=== PATIENT | male | born 1955 | race Caucasian/White ===

== ENCOUNTER 2020-02-10 09:14 | Emergency (ER) | payer MEDICARE, MEDICAID, SELFPAY ==
--- NOTE | 2020-02-10 09:34 | XR_ITS ---
EXAMINATION: XR CHEST CLINICAL INFORMATION: Shortness of breath COMPARISON: Previous chest x-ray most recent August 2019 TECHNIQUE: Frontal view of the chest was obtained. FINDINGS: The cardiac and mediastinal contours are stable. The lungs are well inflated. The lungs are clear. No pleural effusion or pneumothorax is seen. There are mild degenerative changes of the spine. XR/XR chest 1V IMPRESSION: No evidence for acute disease in the chest.
--- NOTE | 2020-02-10 09:34 | ECG_ITS ---
Test Reason : ASTHMA Blood Pressure : / mmHG Vent. Rate : 058 BPM Atrial Rate : 058 BPM P-R Int : 154 ms QRS Dur : 102 ms QT Int : 458 ms P-R-T Axes : 044 051 040 degrees QTc Int : 449 ms Sinus bradycardia RSR' or QR pattern in V1 suggests right ventricular conduction delay Nonspecific ST abnormality Abnormal ECG When compared with ECG of 12-JUN-2018 14:19, No significant change was found Referred By: Geoff Khan Electronically Signed By:HUE CHRISTENSEN MD
--- NOTE | 2020-02-10 09:40 | ED_ITS ---
HPI - SOB/Dyspnea General Chief Complaint: Asthma Stated Complaint: asthma Time Seen by Provider: 02/10/20 09:29 Source: patient Mode of arrival: ambulatory Limitations: no limitations History of Present Illness HPI Narrative: Patient presents to the ED for 7 days of shortness of breath. patient states wheezing due to asthma. patient states he ran out of albuterol inhaler and nebulizer Patient states no coughing, fever, chills, chest pain, coughing up blood, chest pain on inspiration, or any recent trauma. States also chronic lower bilateral extremities. Patient states shortness of breath on exertion. Patient denies any recent long travel, recent surgery, hormone use, history blood clots, or coughing up blood. Related Data Previous Rx's Medication Instructions Recorded albuterol sulfate 2 puff INHALATION Q6H PRN #18 g 02/10/20 albuterol sulfate 2.5 mg INHALATION Q6H PRN #30 ea 02/10/20 prednisone 40 mg PO DAILY #10 tab 02/10/20 Allergies Allergy/AdvReac Type Severity Reaction Status Date / Time No Known Allergies Allergy Unverified 12/31/19 15:10 [No Known Allergies*] Review of Systems Review of Systems: Yes all other systems are reviewed and are negative Constitutional: Constitutional: Reports as per HPI, Reports no additional constitutional complaints, Denies anorexia, Denies body ache(s), Denies chills, Denies daytime sleepiness, Denies difficulty sleeping, Denies fatigue, Denies fever(s), Denies frequent falls, Denies headache(s), Denies increased appetite and Denies lethargy Eyes: Eyes: Reports as per HPI, Reports no additional eye complaints, Denies blind spots, Denies blurry vision, Denies exophthalmos and Denies change in vision ENT: Reports system reviewed and no additional complaints, except as documented, Reports as per HPI, Reports Normal hearing present, Denies dysp hagia, Denies vertigo, Denies dizziness, Denies dry mouth, Denies otalgia, Denies facial pain, Denies headache(s), Denies hoarseness, Denies lip swelling, Denies epistaxis, Denies mouth lesions, Denies mouth pain, Denies nasal congestion and Denies nasal discharge Cardiovascular: Cardiovascular: Reports as per HPI, Reports no additional cardiovascular complaints, Denies chest pain, Denies chest pain at rest, Denies chest pain with activity, Reports dyspnea, Reports dyspnea on exertion, Denies orthopnea and Denies paroxysmal nocturnal dyspnea Respiratory: Respiratory: Denies no additional respiratory complaints, Denies change in phlegm color, Denies chest congestion, Denies cough, Denies hemoptysis, Denies excessive phlegm production, Denies pain on inspiration, Denies pain with cough, Reports dyspnea and Reports dyspnea on exertion Gastrointestinal: Gastrointestinal: Reports as per HPI, Reports no additional gastrointestinal complaints, Denies abdominal pain, Denies belching, Denies melena, Denies bloating, Denies hematochezia, Denies change in bowel habits, Denies tenesmus, Denies change in stool character, Denies coffee ground emesis, Denies constipation, Denies GI cramping, Denies dysphagia, Denies excessive flatus, Denies early satiety, Denies dyspepsia, Denies heartburn, Denies fecal incontinence, Denies diarrhea, Denies loose stools, Denies nausea and Denies vomiting Musculoskeletal: Musculoskeletal: Reports no additional musculoskeletal complaints and Reports as per HPI Neurologic: Reports Normal hearing present, Denies vertigo, Denies dizziness, Denies frequent falls and Denies headache(s) Endocrine: Endocrine: Denies fatigue PMFSH Past Medical History Medical History (Updated 02/10/20 @ 11:38 by YFN Villafuerte) Glaucoma HTN (hypertension) Surgical History (Updated 02/10/20 @ 09:44 by Lola Hartley) Hx of bilateral cataract extraction Social History Social History Smoking Status: Current every day smoker Use of substances other than those prescribed or required for medical reasons: Yes 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 Last Used Substance: Hours (ago) Any prior treatment program specific to substance use: No Advance Directives: Yes Advance Directives Information Provided: Yes Advance Directives on File: No Physical Exam Vital Signs: Vital Signs: Vital Signs Temp Pulse Resp BP Pulse Ox 02/10/20 11:57 76 18 161/74 H 95 02/10/20 09:41 98.1 F 62 18 142/52 H 96 Body Mass Index 23.8 Const: General: cooperative, healthy appearing, comfortable, no acute distress, well developed, alert and awake Orientation/consciousness: patient oriented x3 HENMT: Head: Yes normal to inspection and Yes No palpable skull fracture present Ears: hearing grossly normal bilaterally and external ears normal General nose exam: Normal external nose present Face and sinus: Yes normal facial exam Eyes: General: appearance normal, both eyes and all related structures Neck: Neck: Yes normal visual inspection, Yes full ROM, Yes no lymphadenopathy and Yes no meningeal signs Chest: Chest palpation & inspection: normal inspection of the chest, normal palpation of entire chest wall and no localized rib tenderness Resp: Effort & Inspection: normal respiratory effort, able to speak in complete sentences, normal respiratory pattern, no audible wheezes, no cough, no grunting, not labored, no nasal flaring, no paradoxical thoraco-abdom movements, no pursed lip breathing, no respiratory distress, no retractions, no stridor, not tachypneic and no tracheal deviation Auscultation: no crackles, no rales, no rhonchi, wheezes expiratory wheezes and lung sounds not diminished Percussion: percussion normal Cardio: Jugular venous distension: no JVD Heart sounds: S1 normal heart sound present and S2 normal heart sound present GI: Inspection: Yes normal to inspection Palpation (GI): Soft to palpation, not firm, nontender, no guarding and not rigid Percussion: Yes normal to percussion Auscultation: normal bowel sounds : General: No CVA tenderness and Yes no CVA tenderness Back/Spine/Pelvis: Back: no CVA tenderness, No CVA tenderness and No back tenderness Skin: General skin exam: no rashes or lesions noted Neuro: General: patient oriented x3, gait normal, no meningeal signs and CN's II-XI intact bilaterally Cranial nerves: Yes CN's II-XII intact bilaterally and Yes Normal hearing present Extrem: Other: Positive for bilateral lower extremity 1+pitting edema. Nega tive for any calf pain or erythema bilaterally. patient states this has occurred many times in the past. Physical exam does not inidicate DVT. Course Course Course Narrative: History physical exam indicating asthma exacerbation. Due to swelling of lower extremities BNP and troponin will be sent. History physical exam does not indicate PE. Patient does not have any risk factors such for PE. Patient denies any chest pain on inspiration, unilateral swelling extremity, coughing up blood, estrogen hormone use, recent trauma, or recent surgery. Reevaluation(s) Reevaluation #1: Patient states he feels better after receiving treatment. Patient's troponins negative after 7 days Period. BNP is negative. Chest x-ray negative for cardiomegaly, pneumonia, or effusions. Patient walked around the ER with O2 saturation pain between 95 and 97%. History and physical exam indicate Asthma exacerbation. Wheezing resolved. Patient is safe for discharge Time: 11:33 MDM - SOB/Dyspnea MDM Narrative Medical decision making narrative: Asthma exacerbation Differential Diagnosis Differential diagnosis: Likely asthma with exacerbation Lab Data Result diagrams: 02/10/20 09:54 02/10/20 09:54 Labs: Lab Results 02/10/20 02/10/20 02/10/20 Range/Units 09:54 09:54 09:54 WBC 4.5 L (4.8-10.8) X10*3/uL RBC 4.24 L (4.60-5.80) X10*6/uL Hgb 13.1 L (14.0-18.0) g/dl Hct 39.6 L (42-52) % MCV 93.4 (80-98) fL MCH 30.9 (27.0-33.0) pg MCHC 33.1 (31.0-36.0) g/dl RDW 12.1 (11.0-16.0) % Plt Count 222 (160-400) X10*3/uL MPV 9.3 L (9.4-12.4) fL Immature Gran % (Auto) 0.2 (0.0-0.4) % Neut % (Auto) 61.6 (45-73) % Lymph % (Auto) 25.6 (20-40) % [place] % (Auto) 8.1 (2-11) % Eos % (Auto) 3.4 (0-4) % Baso % (Auto) 1.1 (0-2) % Lymph # (Auto) 1.1 L (1.2-4.9) X10*3/uL [place] # (Auto) 0.4 (0.1-1.2) X10*3/uL Eos # (Auto) 0.2 (0.0-0.4) X10*3/uL Baso # (Auto) 0.1 (0.0-0.2) X10*3/uL Abs Immat Gran (auto) 0.01 (0.00-0.03) X10*3/uL Absolute Neuts (auto) 2.8 (2.0-8.3) X10*3/uL Absolute Nucleated RBC 0.000 (0.0-0.012) X10*3/uL Nucleated RBC % (auto) 0.0 (0.0-0.2) /100WBC PT 10.8 (10.8-13.0) SEC INR 0.9 (0.9-1.1) APTT 31.0 (24.1-38.0) SEC Sodium 136 (135-145) mmol/L Potassium 4.2 (3.3-5.1) mmol/l Chloride 101 (96-108) mmol/L Carbon Dioxide 29 (22-29) mmol/L Anion Gap 10 L (12-20) BUN 18 H (9-16) mg/dL Creatinine 0.98 (0.5-1.4) mg/dL Estim Creat Clear Calc 70.2 Estimated GFR > 60 Random Glucose 105 (60-115) mg/dL Calcium 8.4 (8.4-10.2) mg/dL Total Bilirubin 0.4 (0.0-1.0) mg/dL AST 33 (5-37) U/L ALT 29 (0-40) U/L Alkaline Phosphatase 46 (39-117) U/L Troponin I High Sens (<3.5-35.0) ng/L B-Natriuretic Peptide (<100) pg/mL Total Protein 6.4 L (6.5-8.0) g/dL Albumin 4.2 (3.5-5.0) g/dL 02/10/20 Range/Units 09:54 WBC (4.8-10.8) X10*3/uL RBC (4.60-5.80) X10*6/uL Hgb (14.0-18.0) g/dl Hct (42-52) % MCV (80-98) fL MCH (27.0-33.0) pg MCHC (31.0-36.0) g/dl RDW (11.0-16.0) % Plt Count (160-400) X10*3/uL MPV (9.4-12.4) fL Immature Gran % (Auto) (0.0-0.4) % Neut % (Auto) (45-73) % Lymph % (Auto) (20-40) % [place] % (Auto) (2-11) % Eos % (Auto) (0-4) % Baso % (Auto) (0-2) % Lymph # (Auto) (1.2-4.9) X10*3/uL [place] # (Auto) (0.1-1.2) X10*3/uL Eos # (Auto) (0.0-0.4) X10*3/uL Baso # (Auto) (0.0-0.2) X10*3/uL Abs Immat Gran (auto) (0.00-0.03) X10*3/uL Absolute Neuts (auto) (2.0-8.3) X10*3/uL Absolute Nucleated RBC (0.0-0.012) X10*3/uL Nucleated RBC % (auto) (0.0-0.2) /100WBC PT (10.8-13.0) SEC INR (0.9-1.1) APTT (24.1-38.0) SEC Sodium (135-145) mmol/L Potassium (3.3-5.1) mmol/l Chloride (96-108) mmol/L Carbon Dioxide (22-29) mmol/L Anion Gap (12-20) BUN (9-16) mg/dL Creatinine (0.5-1.4) mg/dL Estim Creat Clear Calc Estimated GFR Random Glucose (60-115) mg/dL Calcium (8.4-10.2) mg/dL Total Bilirubin (0.0-1.0) mg/dL AST (5-37) U/L ALT (0-40) U/L Alkaline Phosphatase (39-117) U/L Troponin I High Sens 4.8 (<3.5-35.0) ng/L B-Natriuretic Peptide 32 (<100) pg/mL Total Protein (6.5-8.0) g/dL Albumin (3.5-5.0) g/dL ECG Data Interpretation: Sinus bradycardia. Ventricular rate 58. UT interval 154. Negative STEMI. Discharge Plan Discharge Clinical Impression: Asthma with acute exacerbation Patient Disposition: Home, Self-Care Instructions: Asthma (ED) Additional Instructions: Return to the ED for any chest pain, shortness of breath, worsening swelling of lower extremities, calf pain, chest pain on inspiration, coughing up blood, fever, chills, weakness, night sweats, headache, dizziness, passing out, or any other concerning symptoms. Prescriptions: New prednisone 20 mg tablet 40 mg PO DAILY Qty: 10 RF: 0 albuterol sulfate 90 mcg/actuation HFA aerosol inhaler 2 puff inhalation Q6H PRN (Reason: asthma) Qty: 18 RF: 0 albuterol sulfate 2.5 mg/0.5 mL solution for nebulization 2.5 mg inhalation Q6H PRN (Reason: bronchospasm) Qty: 30 RF: 0 Referrals: Jason Hill MD [Primary Care Provider] - 2 days ( Asthma exacerbation) Interventions: ED Discharge Assessment Last Done: 02/10/20 11:47 Discharge Date/Time: 02/10/20 11:59 Print Language: Mongolian
[2020-02-10 09:41] VITALS: BP 142/52; PULSE 62; RESP 18; TEMP 36.7; O2SAT 96; BMI 23.8
[2020-02-10 10:02] LABS: MANUAL DIFF FLAG NO
[2020-02-10] MEDS: methylPREDNISolone Sod Succ/PF 125 MG/2 ML VIAL IVPUSH (10:02)
[2020-02-10] MEDS: Magnesium Sulfate/H2O 2 GM/50 ML PIGGYBACK IV (10:02)
[2020-02-10 10:04] LABS: Basophils Absolute Auto 0.1 X10*3/uL (0.0-0.2); Basophils Percent Auto 1.1 % (0-2); Eosinophils Absolute Auto 0.2 X10*3/uL (0.0-0.4); Eosinophils Percent Auto 3.4 % (0-4); Hematocrit 39.6 % (42-52); Hemoglobin 13.1 g/dl (14.0-18.0); Imm Gran Abs Auto 0.01 X10*3/uL (0.00-0.03); Imm Gran Pct Auto 0.2 % (0.0-0.4); Lymphocytes Absolute Auto 1.1 X10*3/uL (1.2-4.9); Lymphocytes Percent Auto 25.6 % (20-40); Mean Corpuscular HGB Conc 33.1 g/dl (31.0-36.0); Mean Corpuscular Hemoglobin 30.9 pg (27.0-33.0); Mean Corpuscular Volume 93.4 fL (80-98); Mean Platelet Volume 9.3 fL (9.4-12.4); Monocytes Absolute Auto 0.4 X10*3/uL (0.1-1.2); Monocytes Percent Auto 8.1 % (2-11); Neutrophils Absolute Auto 2.8 X10*3/uL (2.0-8.3); Neutrophils Percent Auto 61.6 % (45-73); Platelet Count 222 X10*3/uL (160-400); Red Blood Count 4.24 X10*6/uL (4.60-5.80); Red Cell Distribution Width 12.1 % (11.0-16.0); White Blood Count 4.5 X10*3/uL (4.8-10.8)
[2020-02-10] MEDS: Albuterol/Iprat 2.5/0.5MG 3 ML AMPUL.NEB INHALE (10:07)
[2020-02-10 10:10] LABS: INTERNATIONAL NORM RATIO 0.9 (0.9-1.1); Prothrombin Time 10.8 SEC (10.8-13.0)
[2020-02-10 10:36] LABS: Alanine Aminotransferase 29 U/L (0-40); Albumin Level 4.2 g/dL (3.5-5.0); Alkaline Phosphatase 46 U/L (39-117); Anion Gap 10 (12-20); Aspartate Amino Transferase 33 U/L (5-37); Bilirubin Total 0.4 mg/dL (0.0-1.0); Blood Urea Nitrogen 18 mg/dL (9-16); Calcium 8.4 mg/dL (8.4-10.2); Carbon Dioxide 29 mmol/L (22-29); Chloride 101 mmol/L (96-108); Creatinine Clr Calc Pharmacy 70.2; Estimated Glomerular Filt Rate > 60; Glucose Random 105 mg/dL (60-115); Potassium 4.2 mmol/l (3.3-5.1); Sodium 136 mmol/L (135-145); Total Protein 6.4 g/dL (6.5-8.0)
[2020-02-10 10:37] LABS: B Type Natriuretic Peptide 32 pg/mL (<100); Troponin-I High Sensitivity 4.8 ng/L (<3.5-35.0)
--- NOTE | 2020-02-10 11:05 | PC.NURSE ---
pt reports feeling better after the medication and breathing treatment, ls also improved but still some expertory wheezing
[2020-02-10 11:57] VITALS: BP 161/74; PULSE 76; RESP 18; O2SAT 95
== END 2020-02-10 11:59 | disposition home or self-care (01) ==
PROVIDERS: Physician Assistant; Emergency Provider Emergency Medicine; PCP Internal Medicine
DX: J45.909 Unspecified asthma, uncomplicated (principal); F17.200 Nicotine dependence, unspecified, uncomplicated; Z71.6 Tobacco abuse counseling; Z79.899 Other long term (current) drug therapy
CPT/HCPCS: 36415; 71045; 80053; 83880; 84484; 85025; 85610; 85730; 93005; 96365; 96366; 96375; 99284; J2930; J3475

== ENCOUNTER 2020-02-24 17:13 | Emergency (ER) | payer MEDICARE, MEDICAID, SELFPAY ==
[2020-02-24 17:34] VITALS: BP 140/68; PULSE 89; RESP 18; TEMP 35.7; O2SAT 92; BMI 23.8
--- NOTE | 2020-02-24 21:05 | XR_ITS ---
EXAMINATION: XR CHEST CLINICAL INFORMATION: Shortness of breath COMPARISON: 02/24/2020 TECHNIQUE: Frontal view of the chest was obtained. FINDINGS: No significant abnormality is noted involving the heart, lungs, mediastinum, bony thorax or soft tissues. There is an old fracture of the ninth posterior right rib. XR/XR chest 1V IMPRESSION: No acute intrathoracic disease.
--- NOTE | 2020-02-24 21:07 | ED_ITS ---
HPI - Asthma General Chief Complaint: Asthma Stated Complaint: asthma Time Seen by Provider: 02/24/20 21:05 History of Present Illness HPI Narrative: patient is a 64-year-old male presents today with having wheezing generalized malaise coughing congestion upper respiratory symptoms. Patient from home. There has been no change in patient's smell or taste. No travel. No sick contacts at home. Positive history of asthma in the past. Patient has never been intubated. Admitted to the hospital once. Patient denies smoking history. No alcohol. Related Data Previous Rx's Medication Instructions Recorded albuterol sulfate 2 puff INHALATION Q6H PRN #18 g 02/10/20 albuterol sulfate 2.5 mg INHALATION Q6H PRN #30 ea 02/10/20 prednisone 40 mg PO DAILY #10 tab 02/10/20 prednisone 40 mg PO DAILY 5 Days #10 tab 02/25/20 Allergies Allergy/AdvReac Type Severity Reaction Status Date / Time No Known Allergies Allergy Unverified 12/31/19 15:10 [No Known Allergies*] Review of Systems Review of Systems: Constitutional: No Weight loss, No Fever, No Chills, No Night Sweats, No Fatigue, No Malaise ENT/Mouth: No Hearing loss, No Ear Pain, No Nasal Congestion, No Sinus Pain, No Hoarseness, No sore throat, No Rhinorrhea, No Swallowing Difficulty Eyes: No Eye Pain, No Swelling, No Redness, No Foreign Body, No Discharge, No Vision Changes Cardiovascular: No Chest Pain, No SOB, No Dyspnea on Exertion, No Orthopnea, No Edema, No Palpitations Respiratory: Positive cough, shortness of breath Gastrointestinal: No Nausea, No Vomiting, No Diarrhea, No Constipation, No abdominal Pain, No Hematochezia, No Melena Genitourinary: no irregular bleeding, No Dysuria, No Urinary Frequency, No Hematuria, No Urinary Incontinence, No Urgency, No Flank Pain, No Urinary Flow Changes, No Hesitancy Musculoskeletal: No joint pain, No Myalgias, No Joint Swelling Skin: No Skin Lesions, No rash Neuro: No Weakness, No Numbness, No Paresthesias, No Loss of Consciousness, No Dizziness, No Headache Psych: No Anxiety/Panic, No Depression, No SI/HI/AH/VH, No Social Issues, Heme/Lymph: No Bruising, No Bleeding,No Lymphadenopathy Endocrine: No Polyuria, No Polydipsia, No Temperature Intolerance [facility] Past Medical History Attestation statement: The following information was validated with the patient. Medical History Glaucoma HTN (hypertension) Surgical History Hx of bilateral cataract extraction Social History Social History Smoking Status: Current every day smoker Substance Use Type: Heroin Advance Directives: No Advance Directives Information Provided: No Physical Exam Vital Signs: Vital Signs: Last Vital Signs Temp 96.3 F L 02/24/20 17:34 Pulse 67 02/24/20 22:38 Resp 22 H 02/24/20 22:38 BP 144/86 H 02/24/20 22:38 Pulse Ox 95 02/24/20 22:38 Body Mass Index 23.8 Appearance: Alert. Oriented X3. No acute distress. Eyes: Pupils equal, round and reactive to light. ENT: Pharynx normal. Neck: Normal inspection. Neck supple. No lymph nodes noted. No crepitus CVS: Normal heart rate and rhythm. Pulses normal. Normal S1 and S2 Respiratory: increased work of breathing, wheezing bilaterally Abdomen: Soft and nontender. No rigidity. No distention. good BS x4 Skin: Skin warm and dry. Normal skin color. Normal skin turgor. Extremities: No lower extremity edema. Neurovascular intact to all extremities. No Lacerations. No Rash Neuro: Oriented X 3. No motor deficit. No sensory deficit. Moving all extermities. No slurred speech MDM - Asthma MDM Narrative Medical decision making narrative: Patient monitor in the emergency department. Rotavirus test was negative chest x-ray showed no focal infiltrate given neb treatments. Patient given steroid after an hour long treatments symptoms dramatically improved. Will discharge patient home. Close follow-up on an outpatient basis. In stable condition. Lab Data Result diagrams: 02/24/20 22:21 02/24/20 22:21 Labs: Lab Results 02/24/20 02/24/20 02/24/20 Range/Units 22:21 22:21 22:21 WBC 7.0 (4.8-10.8) X10*3/uL RBC 4.11 L (4.60-5.80) X10*6/uL Hgb 12.6 L (14.0-18.0) g/dl Hct 37.8 L (42-52) % MCV 92.0 (80-98) fL MCH 30.7 (27.0-33.0) pg MCHC 33.3 (31.0-36.0) g/dl RDW 12.3 (11.0-16.0) % Plt Count 228 (160-400) X10*3/uL MPV 9.2 L (9.4-12.4) fL Immature Gran % (Auto) 0.3 (0.0-0.4) % Neut % (Auto) 57.3 (45-73) % Lymph % (Auto) 27.0 (20-40) % [place] % (Auto) 6.2 (2-11) % Eos % (Auto) 8.6 H (0-4) % Baso % (Auto) 0.6 (0-2) % Lymph # (Auto) 1.9 (1.2-4.9) X10*3/uL [place] # (Auto) 0.4 (0.1-1.2) X10*3/uL Eos # (Auto) 0.6 H (0.0-0.4) X10*3/uL Baso # (Auto) 0.0 (0.0-0.2) X10*3/uL Abs Immat Gran (auto) 0.02 (0.00-0.03) X10*3/uL Absolute Neuts (auto) 4.0 (2.0-8.3) X10*3/uL Absolute Nucleated RBC 0.000 (0.0-0.012) X10*3/uL Nucleated RBC % (auto) 0.0 (0.0-0.2) /100WBC Sodium 140 (135-145) mmol/L Potassium 3.8 (3.3-5.1) mmol/l Chloride 102 (96-108) mmol/L Carbon Dioxide 26 (22-29) mmol/L Anion Gap 16 (12-20) BUN 26 H (9-16) mg/dL Creatinine 0.96 (0.5-1.4) mg/dL Estim Creat Clear Calc 71.7 Estimated GFR > 60 Random Glucose 108 (60-115) mg/dL Calcium 8.5 (8.4-10.2) mg/dL Coronavirus (PCR) NEGATIVE (Negative) Influenza Type A (PCR) NEGATIVE (Negative) Influenza Type B (PCR) NEGATIVE (Negative) RSV RNA Qual (PCR) NEGATIVE (Negative) Critical Care Time Critical Care Time Total Critical Care Time: 30 Attestation: I have personally provided 40 minutes of critical care time exclusive of time spent on separately billable procedures. Time includes review of lab data, radiology results, discussion with consultants, and monitoring for potential decompensation. Interventions were performed as documented above Discharge Plan Discharge Clinical Impression: Asthma with acute exacerbation Patient Disposition: Home, Self-Care Instructions: Asthma (ED) Additional Instructions: UA given inhaler from the emergency department. Close follow-up on an outpatient basis. Worsening condition return to the emergency department. Prescriptions: New prednisone 20 mg tablet 40 mg PO DAILY 5 Days Qty: 10 RF: 0 No Action prednisone 20 mg tablet 40 mg PO DAILY Qty: 10 RF: 0 albuterol sulfate 90 mcg/actuation HFA aerosol inhaler 2 puff inhalation Q6H PRN (Reason: asthma) Qty: 18 RF: 0 albuterol sulfate 2.5 mg/0.5 mL solution for nebulization 2.5 mg inhalation Q6H PRN (Reason: bronchospasm) Qty: 30 RF: 0 Referrals: Jason Hill MD [Primary Care Provider] - 2 days
[2020-02-24] MEDS: Albuterol Sulfate (0.083%) 2.5 MG/3 ML VIAL.NEB 10 MG INHALE (21:11)
[2020-02-24] MEDS: Albuterol Sulfate 90 MCG 8 GM INHALER 2 PUFF INHALE (21:49)
[2020-02-24 22:33] LABS: Basophils Percent Auto 0.6 % (0-2); Eosinophils Absolute Auto 0.6 X10*3/uL (0.0-0.4); Eosinophils Percent Auto 8.6 % (0-4); Hematocrit 37.8 % (42-52); Hemoglobin 12.6 g/dl (14.0-18.0); Imm Gran Abs Auto 0.02 X10*3/uL (0.00-0.03); Imm Gran Pct Auto 0.3 % (0.0-0.4); Lymphocytes Absolute Auto 1.9 X10*3/uL (1.2-4.9); Mean Corpuscular HGB Conc 33.3 g/dl (31.0-36.0); Mean Corpuscular Hemoglobin 30.7 pg (27.0-33.0); Mean Platelet Volume 9.2 fL (9.4-12.4); Monocytes Absolute Auto 0.4 X10*3/uL (0.1-1.2); Monocytes Percent Auto 6.2 % (2-11); Neutrophils Percent Auto 57.3 % (45-73); Platelet Count 228 X10*3/uL (160-400); Red Blood Count 4.11 X10*6/uL (4.60-5.80); Red Cell Distribution Width 12.3 % (11.0-16.0)
[2020-02-24 22:34] LABS: MANUAL DIFF FLAG NO
[2020-02-24 22:38] VITALS: BP 144/86; PULSE 67; RESP 22; O2SAT 95
--- NOTE | 2020-02-24 22:39 | PC.NURSE ---
pt labs sent, covid/rsv swab complete.
[2020-02-24 23:04] LABS: Anion Gap 16 (12-20); Blood Urea Nitrogen 26 mg/dL (9-16); Calcium 8.5 mg/dL (8.4-10.2); Carbon Dioxide 26 mmol/L (22-29); Chloride 102 mmol/L (96-108); Creatinine Clr Calc Pharmacy 71.7; Estimated Glomerular Filt Rate > 60; Glucose Random 108 mg/dL (60-115); Potassium 3.8 mmol/l (3.3-5.1); Sodium 140 mmol/L (135-145)
[2020-02-24 23:15] LABS: Influenza A PCR NEGATIVE (Negative); Influenza B PCR NEGATIVE (Negative); Resp Syncy Virus RNA Qual PCR NEGATIVE (Negative); SARS COV2 PCR INHOUSE NEGATIVE (Negative)
[2020-02-25] MEDS: methylPREDNISolone Sod Succ/PF 125 MG/2 ML VIAL IVPUSH (00:36)
== END 2020-02-25 02:38 | disposition home or self-care (01) ==
PROVIDERS: Emergency Provider Emergency Medicine Emergency Medical Services; PCP Internal Medicine
DX: J45.901 Unspecified asthma with (acute) exacerbation (principal); F11.90 Opioid use, unspecified, uncomplicated; F17.200 Nicotine dependence, unspecified, uncomplicated; Z79.899 Other long term (current) drug therapy; Z71.6 Tobacco abuse counseling; Z20.828 Contact with and (suspected) exposure to other viral communicable diseases
CPT/HCPCS: 0241U; 36415; 71045; 80048; 85025; 94640; 96365; 96375; 99283; 99291; J2930

== ENCOUNTER 2020-08-13 12:20 | Emergency (ER) | payer MEDICARE, MEDICAID, SELFPAY ==
--- NOTE | ~2020-08-13 | XR_ITS ---
EXAMINATION: XR CHEST CLINICAL INFORMATION: Shortness of breath COMPARISON: 02/24/2020 TECHNIQUE: Frontal view of the chest was obtained. FINDINGS: No focal consolidation, pleural effusion or pneumothorax. The cardiac mediastinal silhouette is unchanged. No acute osseous abnormality. Old right posterior ninth rib fracture. XR/XR chest 1V IMPRESSION: No acute pulmonary process.
[2020-08-13 12:26] VITALS: BP 176/70; PULSE 77; RESP 22; TEMP 36; O2SAT 100; BMI 25.0
[2020-08-13] MEDS: Albuterol Sulfate 90 MCG 8 GM INHALER 2 PUFF INHALE (13:37)
[2020-08-13] MEDS: predniSONE 20 MG TABLET 40 MG PO (13:37)
--- NOTE | 2020-08-13 13:40 | ED_ITS ---
HPI - SOB/Dyspnea General Chief Complaint: Dyspnea Stated Complaint: sob Time Seen by Provider: 08/13/20 13:30 Source: patient Mode of arrival: ambulatory Limitations: no limitations History of Present Illness HPI Narrative: 64 years old male with history of asthma, currently smoker, presented with acute asthma exacerbation. Patient feel wheezing and tightness in his chest, patient ran out of his albuterol pump, coughing with occasional expectoration of clear sputum. No fever, no chills. Related Data Previous Rx's Medication Instructions Recorded albuterol sulfate 2 puff INHALATION Q6H PRN #18 g 02/10/20 albuterol sulfate 2.5 mg INHALATION Q6H PRN #30 ea 02/10/20 prednisone 40 mg PO DAILY #10 tab 02/10/20 prednisone 40 mg PO DAILY 5 Days #10 tab 02/25/20 albuterol sulfate [ProAir HFA] 1 inh INHALATION QID PRN #8.5 g 08/13/20 prednisone 20 mg PO BID #10 tab 08/13/20 Allergies Allergy/AdvReac Type Severity Reaction Status Date / Time No Known Allergies Allergy Unverified 12/31/19 15:10 [No Known Allergies*] Review of Systems Review of Systems: All other systems are reviewed and are negative Constitutional: Reports as per HPI and Reports no additional constitutional complaints Eyes: Reports as per HPI and Reports no additional eye complaints Reports system reviewed and no additional complaints, except as documented Cardiovascular: Reports as per HPI and Reports no additional cardiovascular complaints Respiratory: Reports as per HPI and Reports no additional respiratory complaints Gastrointestinal: Reports as per HPI and Reports no additional gastrointestinal complaints Genitourinary: Reports no additional female genitourinary complaints Musculoskeletal: Reports no additional musculoskeletal complaints Skin/Breast: Reports system reviewed and no additional complaints, except as doc u Psychiatric: Reports no additional psychiatric complaints Endocrine: Reports no additional endocrine complaints Hematologic/Lymphatic: Reports no additional hematologic/lymphatic complaints Allergic/Immunologic: Reports no additional allergic/immunologic complaints Reports system reviewed and no additional complaints, except as documented and Reports Abnormal speech present [facility] Past Medical History Medical History Asthma Asthma Glaucoma HTN (hypertension) Surgical History Hx of bilateral cataract extraction Social History Social History Smoking Status: Current every day smoker Substance Use Type: Heroin Advance Directives: No Advance Directives Information Provided: Yes Physical Exam Vital Signs: Vital Signs: Last Vital Signs Temp 96.8 F 08/13/20 12:26 Pulse 77 08/13/20 12:26 Resp 22 H 08/13/20 12:26 BP 176/70 H 08/13/20 12:26 Pulse Ox 100 08/13/20 12:26 Body Mass Index 25.0 Vital signs have been reviewed as appeared to be correct. Blood pressure elevated. Heart rate normal. Respiration rate elevated. Temperature normal. Oxygen saturation normal. Appearance: Alert. Oriented X3. No acute distress. Head: Normal external exam. Normocephalic. Atraumatic. No Buck signs noted. No raccoon eyes noted Eyes: PERRLA. EOMI. Conjunctiva and sclera normal. Eyelids normal. ENT: TM's Normal. Pharynx normal. Uvula midline. Moist mucous membranes. No trismus noted. No drooling noted. No muffled voice noted. Neck: Normal inspection. Neck supple. FROM. No adenopathy. Thyroid Normal. No meningeal signs. No neck mass noted. CVS: Normal heart rate and rhythm. Heart sound normal. No murmurs noted. Pulses normal throughout. Respiratory: No respiratory distress. Painless inspiration. Breath sounds normal. Diffuse expiratory wheezing, prolonged expiration. no rhonchi noted. Chest nontender. No accessory muscle usage noted or decreased air movement noted. Abdomen: Soft and nontender. Bowel sounds normal in all 4 quadrants. No distention noted. No organomegaly noted. No visible injury noted. Back: No CVA tenderness. Full range of motion noted. Skin: Skin warm and dry. Normal skin color. Normal skin turgor. No rashes/lesions/lacerations noted. Extremities: No lower extremity edema. Extremities exhibit normal range of motion. Extremities nontender. Neuro: Oriented X 3. No motor deficit. No sensory deficit. Reflexes normal. Course Course Course Narrative: Assessment and plan. 64-year-old male with history of asthma came in with wheezing and chest tightness after he ran out of his albuterol, physical exam and history is consistent with acute asthma exacerbation. Start the patient on prednisone , refill his albuterol bump. [facility] - SOB/Dyspnea Lab Data Attestation: I reviewed the patient's lab results. Labs: Lab Results 08/13/20 Range/Units 13:36 COVID-19 ([facility]) Negative (Negative) COVID-19 Clin Com See Note Imaging Data Chest x-ray: Radiologist's impression: No acute pathology. Discharge Plan Discharge Clinical Impression: Asthma with exacerbation Patient Disposition: Home, Self-Care Instructions: Asthma (ED) Prescriptions: New albuterol sulfate [ProAir HFA] 90 mcg/actuation HFA aerosol inhaler 1 inh inhalation QID PRN (Reason: shortness of breath or wheezing) Qty: 8.5 RF: 0 prednisone 20 mg tablet 20 mg PO BID Qty: 10 RF: 0 No Action prednisone 20 mg tablet 40 mg PO DAILY Qty: 10 RF: 0 albuterol sulfate 90 mcg/actuation HFA aerosol inhaler 2 puff inhalation Q6H PRN (Reason: asthma) Qty: 18 RF: 0 albuterol sulfate 2.5 mg/0.5 mL solution for nebulization 2.5 mg inhalation Q6H PRN (Reason: bronchospasm) Qty: 30 RF: 0 prednisone 20 mg tablet 40 mg PO DAILY 5 Days Qty: 10 RF: 0 Referrals: Damon Parkinson DO [Primary Care Provider] - 2 days
[2020-08-13 13:59] LABS: COVID-19 Test Negative (Negative)
== END 2020-08-13 14:50 | disposition home or self-care (01) ==
PROVIDERS: Emergency Provider Emergency Medicine; PCP Internal Medicine
DX: J45.901 Unspecified asthma with (acute) exacerbation (principal); R06.00 Dyspnea, unspecified; F11.90 Opioid use, unspecified, uncomplicated; F17.210 Nicotine dependence, cigarettes, uncomplicated; Z79.899 Other long term (current) drug therapy; Z71.6 Tobacco abuse counseling; Z20.822 Contact with and (suspected) exposure to COVID-19
CPT/HCPCS: 36415; 71045; 87635; 99284

== ENCOUNTER 2020-10-16 11:52 | Emergency (ER) | payer MEDICARE, MEDICAID, SELFPAY ==
--- NOTE | ~2020-10-16 | XR_ITS ---
EXAMINATION: XR CHEST CLINICAL INFORMATION: Shortness of breath COMPARISON: Chest x-ray on 08/13/2020 TECHNIQUE: 2 views of the chest were obtained. FINDINGS: The cardiac mediastinal silhouette is stable. No areas of consolidation. No pleural effusions. Old right ninth rib fracture. XR/XR chest 2V IMPRESSION: No acute disease.
--- NOTE | ~2020-10-16 | US_ITS ---
EXAMINATION: US VENOUS ULTRASOUND WITH DOPPLER LOWER EXTREMITY, BILATERAL CLINICAL INFORMATION: Swelling, pain, rule out DVT COMPARISON: None TECHNIQUE: Ultrasound of the deep veins is performed from the hip to the calf with compression sonography and color and pulse Doppler assessment. Spectral analysis with color-flow imaging is performed. FINDINGS: RIGHT: There is normal venous compression and respiratory variation and augmented flow. The visualized common femoral vein, superficial femoral vein, profunda femoral vein, popliteal vein, and the trifurcation region shows no evidence of deep venous thrombosis. There is no significant popliteal fossa cyst. LEFT: There is normal venous compression and respiratory variation and augmented flow. The visualized common femoral vein, superficial femoral vein, profunda femoral vein, popliteal vein, and the trifurcation region shows no evidence of deep venous thrombosis. There is a 3.7 x 0.8 x 0.7 cm fluid collection in left popliteal fossa. If the patient's symptoms persist, followup ultrasound in 5 days 7 days might be of value to exclude proximal propagation from a non-visualized calf vein. US/US venous duplex LE BI IMPRESSION: No DVT demonstrated in the bilateral lower extremity. Left Christianson's cyst.
[2020-10-16 11:57] VITALS: BP 127/49; PULSE 68; RESP 18; TEMP 36.9; O2SAT 97; BMI 23.8
--- NOTE | 2020-10-16 12:09 | ECG_ITS ---
Test Reason : UPPER RESPIRATORY Blood Pressure : / mmHG Vent. Rate : 057 BPM Atrial Rate : 057 BPM P-R Int : 174 ms QRS Dur : 106 ms QT Int : 476 ms P-R-T Axes : 036 024 018 degrees QTc Int : 463 ms Sinus bradycardia Otherwise normal ECG When compared with ECG of 10-FEB-2020 10:03, No significant change was found Referred By: Lizbeth Esteves Electronically Signed By:NIC BUSTILLOS MD
--- NOTE | 2020-10-16 12:14 | ED_ITS ---
HPI - General Adult General Chief complaint: Upper Respiratory Symptoms Stated complaint: leg swelling, coughing Time Seen by Provider: 10/16/20 11:53 Source: patient Mode of arrival: ambulatory Limitations: no limitations History of Present Illness HPI narrative: 65-year-old male with a past medical history of asthma, hypertension and glaucoma here with complaints of shortness of breath with wheezing and nonproductive cough x1 week. Also complaining of lower extremity swelling for the last week. No chest pain, fevers or chills. He has a history of lower extremity swelling and has taken a diuretic in the past. He is not currently on 1 at this time. Of note he was seen here in August of 2020 for an asthma exacerbation and was prescribed a course of prednisone. He received his COVID vaccine x 14 August (Moderna). Currently using heroin 4 bags/day (snorts). Denies IVDA. On methadone 70mg daily. Related Data Previous Rx's Medication Instructions Recorded albuterol sulfate 2 puff INHALATION Q6H PRN #18 g 02/10/20 albuterol sulfate 2.5 mg INHALATION Q6H PRN #30 ea 02/10/20 prednisone 40 mg PO DAILY #10 tab 02/10/20 prednisone 40 mg PO DAILY 5 Days #10 tab 02/25/20 albuterol sulfate [ProAir HFA] 1 inh INHALATION QID PRN #8.5 g 08/13/20 prednisone 20 mg PO BID #10 tab 08/13/20 hydrochlorothiazide 25 mg PO DAILY #20 tab 10/16/20 prednisone 40 mg PO DAILY #8 tab 10/16/20 Allergies Allergy/AdvReac Type Severity Reaction Status Date / Time No Known Allergies Allergy Verified 10/16/20 11:56 [No Known Allergies*] Review of Systems Review of Systems: Yes all other systems are reviewed and are negative Constitutional: Constitutional: Reports no additional constitutional complaints, Denies body ache(s), Denies chills, Denies fever(s), Denies headache(s) and Denies weakness Eyes: Eyes: Reports no additional eye complaints and Denies change in vision ENT: Reports system reviewed and no additional complaints, except as docum ented, Denies dizziness, Denies headache(s), Denies nasal congestion, Denies nasal discharge and Denies neck pain Cardiovascular: Cardiovascular: Reports no additional cardiovascular complaints, Denies chest pain, Reports leg edema and Reports dyspnea Respiratory: Respiratory: Reports no additional respiratory complaints, Reports cough and Reports dyspnea Gastrointestinal: Gastrointestinal: Reports no additional gastrointestinal complaints, Denies abdominal pain, Denies diarrhea, Denies nausea and Denies vomiting Genitourinary: Genitourinary: Denies urinary incontinence Musculoskeletal: Musculoskeletal: Reports no additional musculoskeletal complaints, Denies back pain, Denies arthralgias, Denies joint swelling, Denies neck pain, Denies numbness and Denies tingling Integumentary/Breasts: Skin/Breast: Reports system reviewed and no additional complaints, except as docu and Denies rash Neurologic: Reports system reviewed and no additional complaints, except as d ocumented, Denies Abnormal speech present, Denies dizziness, Denies headache(s), Denies numbness, Denies tingling and Denies weakness PMFSH Past Medical History Attestation statement: The following information was validated with the patient. Source: old records reviewed and nursing notes reviewed Medical History Asthma Asthma Glaucoma HTN (hypertension) Surgical History Hx of bilateral cataract extraction Social History Social History (Updated 10/16/20 @ 12:41 by Lizbeth Esteves NP) Alcohol intake: current Alcohol intake frequency: holidays/special occasions only Alcohol type: beer Patient Tobacco Use Status: Current everyday Tobacco user Tobacco use type: Cigarette Smoked in Last 30 Days: Yes Use of substances other than those prescribed or required for medical reasons: Yes Substance Use Type: Heroin Substance Use Type Other:: Heroin-snorts 4 bags daily Substance Use Frequency: Daily Last Used Substance: Hours (ago) Currently Displaying Signs/Symptoms of Drug Intoxication Withdrawal: No Any prior treatment program specific to substance use: Yes (on methadone 70mg daily ) Advance Directives: No Advance Directives Information Provided: Yes Physical Exam Vital Signs: Vital Signs: Last Vital Signs Temp 98.0 F 10/16/20 12:23 Pulse 59 10/16/20 14:36 Resp 12 10/16/20 13:50 BP 110/52 L 10/16/20 13:50 Pulse Ox 95 10/16/20 13:50 Body Mass Index 23.8 Const: General: cooperative, healthy appearing, comfortable and no acute distress Orientation/consciousness: patient oriented x3 Limitations: no limitations HENMT: Head: Yes normal to inspection Ears: hearing grossly normal bilaterally General nose exam: Normal external nose present Face and sinus: Yes normal facial exam Mouth: Normal oral and palatal mucosa present Throat: Yes posterior oropharynx normal Eyes: General: appearance normal, both eyes and all related structures Pupils: Equal, round and reactive pupils present Neck: Neck: Yes normal visual inspection Chest: Chest palpation & inspection: normal inspection of the chest Resp: Other: mild expiratory wheezing Effort & Inspection: normal respiratory effort Cardio: Rate: regular rate Rhythm: regular rhythm Peripheral pulses: Peripheral pulses 2+ throughout GI: Inspection: Yes normal to inspection Palpation (GI): Soft to palpation and nontender Auscultation: normal bowel sounds Back/Spine/Pelvis: Thoracic/Lumbar Spine: thoracic and lumbar spine normal to inspection Skin: General skin exam: no rashes or lesions noted Neuro: General: patient oriented x3, no focal motor deficits and normal sensation to monofilament Cranial nerves: Yes Equal, round and reactive pupil s present Cognition (Neuro): normal cognition Speech: No Abnormal speech present Gait exam (Neuro): Normal gait present Motor exam (neuro): 5/5 motor strength present throughout Extrem: Other: pitting edema extending to the bilateral knees. Palpable distal pulses noted General: Yes normal to inspection and Yes no calf tenderness Course Course Course Narrative: 65-year-old male here with complaints of shortness of breath, wheezing, nonproductive cough and lower extremity swelling x1 week. On exam he has bilateral pitting edema extending to the knees. He has some mild expiratory wheezing exam. hemodynamically stable. will check labs, chest x-ray, EKG, provide Duo Neb and reassess, bilateral venous US. 1345- imaging unremarkable. Labs, EKG show no acute finding. Patient continues to have wheezing. Will ambulate with pulse oximeter. Repeat nebulizer and give dose of Solu-Medrol. 1500- patient feeling much improved. Repeat lung sounds are improved. Patient ambulated with pulse oximeter greater than 99% and no tachypnea. Less likely congestive heart failure with a negative BNP and a chest x-ray which n show fluid overload. ?secondary to multiple rounds of prednisone from poorly controlled asthma. However, patient is clinically improved after receiving steroids and so I do believe he needs a short course of steroids for home. Therefore we will increases his dose of hydrochlorothiazide from 12.5 mg to 25 mg daily. Recommend elevation and compression lower extremities as well as close follow-up with his primary care doctor. Reviewed worrisome signs and symptoms of when to return to the emergency department. Comfortable discharge home. Medical Decision Making MDM Narrative Medical decision making narrative: CHF, asthma exacerbation, liver disease Less likely PE with bilateral ultrasounds negative, no tachypnea or tachycardia And a clinical exam which is consistent with asthma exacerbation Medical Records Medical records reviewed: Yes I reviewed the patient's medical records. Lab Data Lab results reviewed: Yes I reviewed the patient's lab results. Result diagrams: 10/16/20 12:15 10/16/20 12:15 Labs: Lab Results 10/16/20 10/16/20 10/16/20 Range/Units 12:14 12:15 12:15 WBC 5.3 (4.8-10.8) X10*3/uL RBC 3.78 L (4.60-5.80) X10*6/uL Hgb 12.0 L (14.0-18.0) g/dl Hct 35.6 L (42-52) % MCV 94.2 (80-98) fL MCH 31.7 (27.0-33.0) pg MCHC 33.7 (31.0-36.0) g/dl RDW 13.0 (11.0-16.0) % Plt Count 216 (160-400) X10*3/uL MPV 9.1 L (9.4-12.4) fL Immature Gran % (Auto) 0.2 (0.0-0.4) % Neut % (Auto) 55.0 (45-73) % Lymph % (Auto) 28.7 (20-40) % Meriwether % (Auto) 8.9 (2-11) % Eos % (Auto) 6.4 H (0-4) % Baso % (Auto) 0.8 (0-2) % Lymph # (Auto) 1.5 (1.2-4.9) X10*3/uL Meriwether # (Auto) 0.5 (0.1-1.2) X10*3/uL Eos # (Auto) 0.3 (0.0-0.4) X10*3/uL Baso # (Auto) 0.0 (0.0-0.2) X10*3/uL Abs Immat Gran (auto) 0.01 (0.00-0.03) X10*3/uL Absolute Neuts (auto) 2.9 (2.0-8.3) X10*3/uL Absolute Nucleated RBC 0.000 (0.0-0.012) X10*3/uL Nucleated RBC % (auto) 0.0 (0.0-0.2) /100WBC Sodium 139 (135-145) mmol/L Potassium 4.0 (3.3-5.1) mmol/L Chloride 106 (96-108) mmol/L Carbon Dioxide 22 (22-29) mmol/L Anion Gap 15 (12-20) BUN 19 H (9-16) mg/dL Creatinine 1.04 (0.5-1.4) mg/dL Estim Creat Clear Calc 65.3 Estimated GFR > 60 Random Glucose 118 H (60-115) mg/dL Calcium 8.6 (8.4-10.2) mg/dL Magnesium 2.0 (1.6-2.6) mg/dL Total Bilirubin 0.4 (0.0-1.0) mg/dL Direct Bilirubin < 0.2 (0.0-0.5) mg/dL AST 18 D (5-37) U/L ALT 16 (0-40) U/L Alkaline Phosphatase 64 D (39-117) U/L Troponin I High Sens < 3.5 (<3.5-35.0) ng/L B-Natriuretic Peptide 98 (<100) pg/mL Total Protein 6.0 L (6.5-8.0) g/dL Albumin 3.8 (3.5-5.0) g/dL Imaging Data Chest x-ray: Attestation: I personally reviewed and interpreted this imaging study as follows: Radiologist's impression: EXAMINATION: XR CHEST CLINICAL INFORMATION: Shortness of breath COMPARISON: Chest x-ray on 08/13/2020 TECHNIQUE: 2 views of the chest were obtained. FINDINGS: The cardiac mediastinal silhouette is stable. No areas of consolidation. No pleural effusions. Old right ninth rib fracture. XR/XR chest 2V IMPRESSION: No acute disease. Venous US: Attestation: I personally reviewed and interpreted this imaging study as follows: Radiologist's impression: FINDINGS: RIGHT: There is normal venous compression and respiratory variation and augmented flow. The visualized common femoral vein, superficial femoral vein, profunda femoral vein, popliteal vein, and the trifurcation region shows no evidence of deep venous thrombosis. There is no significant popliteal fossa cyst. LEFT: There is normal venous compression and respiratory variation and augmented flow. The visualized common femoral vein, superficial femoral vein, profunda femoral vein, popliteal vein, and the trifurcation region shows no evidence of deep venous thrombosis. There is a 3.7 x 0.8 x 0.7 cm fluid collection in left popliteal fossa. If the patient's symptoms persist, followup ultrasound in 5 days 7 days might be of value to exclude proximal propagation from a non-visualized calf vein. US/US venous duplex LE BI IMPRESSION: No DVT demonstrated in the bilateral lower extremity. Left Christianson's cyst. ECG Data Attestation: I personally reviewed and interpreted this ECG as follows: Interpretation: 10/16 1220 SB 57, normal pr, normal qrs, normal qtc Discharge Plan Discharge Clinical Impression: Pedal edema Asthma Qualifiers: Asthma severity: moderate Asthma persistence: persistent Asthma complication type: with acute exacerbation Qualified Code(s): J45.41 - Moderate persistent asthma with (acute) exacerbation Patient Disposition: Home, Self-Care Instructions: Asthma (ED), Leg Edema (ED) Additional Instructions: Start prednisone tomorrow Continue albuterol as needed Elevate your lower extremities Follow-up with your PCP this week as discussed. I am increasing your dose of hydrochlorothiazide from 12.5 mg daily to 25 mg daily. A new prescription was sent to your pharmacy. Do NOT take both. Prescriptions: New prednisone 20 mg tablet 40 mg PO DAILY Qty: 8 RF: 0 hydrochlorothiazide 25 mg tablet 25 mg PO DAILY Qty: 20 RF: 0 No Action prednisone 20 mg tablet 40 mg PO DAILY Qty: 10 RF: 0 albuterol sulfate 90 mcg/actuation HFA aerosol inhaler 2 puff inhalation Q6H PRN (Reason: asthma) Qty: 18 RF: 0 albuterol sulfate 2.5 mg/0.5 mL solution for nebulization 2.5 mg inhalation Q6H PRN (Reason: bronchospasm) Qty: 30 RF: 0 prednisone 20 mg tablet 40 mg PO DAILY 5 Days Qty: 10 RF: 0 albuterol sulfate [ProAir HFA] 90 mcg/actuation HFA aerosol inhaler 1 inh inhalation QID PRN (Reason: shortness of breath or wheezing) Qty: 8.5 RF: 0 prednisone 20 mg tablet 20 mg PO BID Qty: 10 RF: 0 Referrals: Damon Parkinson DO [Primary Care Provider] - 2 days
[2020-10-16 12:19] LABS: MANUAL DIFF FLAG NO
[2020-10-16 12:23] VITALS: BP 99/43; PULSE 57; RESP 15; TEMP 36.7; O2SAT 95
[2020-10-16 12:26] LABS: Basophils Percent Auto 0.8 % (0-2); Eosinophils Absolute Auto 0.3 X10*3/uL (0.0-0.4); Eosinophils Percent Auto 6.4 % (0-4); Hematocrit 35.6 % (42-52); Imm Gran Abs Auto 0.01 X10*3/uL (0.00-0.03); Imm Gran Pct Auto 0.2 % (0.0-0.4); Lymphocytes Absolute Auto 1.5 X10*3/uL (1.2-4.9); Lymphocytes Percent Auto 28.7 % (20-40); Mean Corpuscular HGB Conc 33.7 g/dl (31.0-36.0); Mean Corpuscular Hemoglobin 31.7 pg (27.0-33.0); Mean Corpuscular Volume 94.2 fL (80-98); Mean Platelet Volume 9.1 fL (9.4-12.4); Monocytes Absolute Auto 0.5 X10*3/uL (0.1-1.2); Monocytes Percent Auto 8.9 % (2-11); Neutrophils Absolute Auto 2.9 X10*3/uL (2.0-8.3); Platelet Count 216 X10*3/uL (160-400); Red Blood Count 3.78 X10*6/uL (4.60-5.80); White Blood Count 5.3 X10*3/uL (4.8-10.8)
[2020-10-16 12:44] LABS: B Type Natriuretic Peptide 98 pg/mL (<100); Troponin-I High Sensitivity < 3.5 ng/L (<3.5-35.0)
[2020-10-16 12:50] LABS: Alanine Aminotransferase 16 U/L (0-40); Albumin Level 3.8 g/dL (3.5-5.0); Alkaline Phosphatase 64 U/L (39-117); Anion Gap 15 (12-20); Aspartate Amino Transferase 18 U/L (5-37); Bilirubin Direct < 0.2 mg/dL (0.0-0.5); Bilirubin Total 0.4 mg/dL (0.0-1.0); Blood Urea Nitrogen 19 mg/dL (9-16); Calcium 8.6 mg/dL (8.4-10.2); Carbon Dioxide 22 mmol/L (22-29); Chloride 106 mmol/L (96-108); Creatinine Clr Calc Pharmacy 65.3; Estimated Glomerular Filt Rate > 60; Glucose Random 118 mg/dL (60-115); Sodium 139 mmol/L (135-145)
[2020-10-16 12:53] VITALS: PULSE 56; O2SAT 95
[2020-10-16] MEDS: Albuterol/Iprat 2.5/0.5MG 3 ML AMPUL.NEB INHALE (12:53)
[2020-10-16 12:55] VITALS: PULSE 54; O2SAT 94
[2020-10-16 13:50] VITALS: BP 110/52; PULSE 57; RESP 12; O2SAT 95
--- NOTE | 2020-10-16 14:00 | PC.NURSE ---
pt reports improvement with work of breathing after neb tx. wheezing and rhonchi still heard throughout. motor pool clerk aware. 99% on RA during ambulation trial, does not appear to be in any resp distress.
[2020-10-16] MEDS: methylPREDNISolone Sod Succ 125 MG/2 ML VIAL IVPUSH (14:18)
[2020-10-16 14:36] VITALS: PULSE 59; O2SAT 94
[2020-10-16] MEDS: Albuterol Sulfate (0.083%) 2.5 MG/3 ML VIAL.NEB 5 MG INHALE (14:36)
== END 2020-10-16 15:34 | disposition home or self-care (01) ==
PROVIDERS: Nurse Practitioner Family; Emergency Provider Emergency Medicine; PCP Internal Medicine
DX: J45.41 Moderate persistent asthma with (acute) exacerbation (principal); R60.0 Localized edema; R06.02 Shortness of breath; I10 Essential (primary) hypertension; F11.20 Opioid dependence, uncomplicated; F17.210 Nicotine dependence, cigarettes, uncomplicated; Z79.899 Other long term (current) drug therapy
CPT/HCPCS: 36415; 71046; 80048; 80076; 83735; 83880; 84484; 85025; 93005; 93970; 94640; 96374; 99285; J2930

== ENCOUNTER 2021-08-18 09:26 | Outpatient (REF) | payer MEDICARE, MEDICAID, SELFPAY ==
[2021-08-18 10:52] LABS: MANUAL DIFF FLAG NO
[2021-08-18 11:30] LABS: Basophils Percent Auto 0.8 % (0-2); Eosinophils Absolute Auto 0.2 X10*3/uL (0.0-0.4); Eosinophils Percent Auto 5.8 % (0-4); Hematocrit 38.7 % (42.0-52.0); Hemoglobin 13.1 g/dl (14.0-18.0); Lymphocytes Absolute Auto 1.3 X10*3/uL (1.2-4.9); Lymphocytes Percent Auto 33.6 % (20-40); Mean Corpuscular HGB Conc 33.9 g/dl (31.0-36.0); Mean Corpuscular Hemoglobin 31.6 pg (27.0-33.0); Mean Corpuscular Volume 93.3 fL (80.0-98.0); Mean Platelet Volume 9.1 fL (9.4-12.4); Monocytes Absolute Auto 0.4 X10*3/uL (0.1-1.2); Monocytes Percent Auto 8.8 % (2-11); Platelet Count 250 X10*3/uL (160-400); Red Blood Count 4.15 X10*6/uL (4.60-5.80); Red Cell Distribution Width 13.2 % (11.0-16.0)
[2021-08-18 12:05] LABS: Alanine Aminotransferase 20 U/L (0-40); Albumin Level 4.2 g/dL (3.5-5.0); Alkaline Phosphatase 64 U/L (39-117); Anion Gap 10 (12-20); Aspartate Amino Transferase 23 U/L (5-37); Bilirubin Total 0.4 mg/dL (0.0-1.0); Blood Urea Nitrogen 18 mg/dL (9-16); Calcium 9.5 mg/dL (8.4-10.2); Carbon Dioxide 33 mmol/L (22-29); Chloride 98 mmol/L (96-108); Estimated Glomerular Filt Rate > 60; Glucose Random 104 mg/dL (60-115); Sodium 137 mmol/L (135-145); Total Protein 6.6 g/dL (6.5-8.0)
[2021-08-18 12:21] LABS: HBS Num1 44.49 mIU/mL (0-7.99); HBc Num1 0.11 S/CO (0.00-0.79); HBsAGNum1 0.15 S/CO (0.00-0.99); Hepatitis A Antibody IgM 0.26 Index (0-0.79); Hepatitis B Core Antibody Nonreactive (Nonreactive); Hepatitis B Surface Antigen Negative (Negative); ~HepC Num1 0.11 S/CO (0.00-0.79); ~Hepatitis A Antibody IgM Nonreactive (Nonreactive); ~Hepatitis B Surface Antibody REACTIVE (Nonreactive); ~Hepatitis C Antibody Nonreactive (Nonreactive)
[2021-08-21 20:41] LABS: Transglutaminase IgA <1.0 U/mL
[2021-08-25 10:31] LABS: HCV Log PCR <1.18 NOT DETECTED Log IU/mL (NOT DETECTED); HepC Viral Load <15 NOT DETECTED IU/mL (NOT DETECTED)
== END 2021-08-18 09:27 | disposition home or self-care (01) ==
LOC: HO.LAB 09:26
PROVIDERS: PCP Internal Medicine; Referring Provider Internal Medicine; Visit Provider Internal Medicine Gastroenterology
DX: K83.8 Other specified diseases of biliary tract (principal); R19.5 Other fecal abnormalities; K75.81 Nonalcoholic steatohepatitis (NASH); G89.29 Other chronic pain; R10.33 Periumbilical pain
CPT/HCPCS: 36415; 80053; 85025; 86364; 86704; 86706; 86709; 86803; 87340; 87522; 99202

== ENCOUNTER 2021-09-13 09:12 | Outpatient (REF) | payer MEDICARE, MEDICAID, SELFPAY ==
--- NOTE | ~2021-09-13 | MR_ITS ---
EXAMINATION: MR ABDOMEN WITHOUT AND WITH CONTRAST CLINICAL INFORMATION: Dilated common bile duct. Rule out pancreatic mass. COMPARISON: Previous MR of the abdomen May 2019, abdominal ultrasound March [address] of the abdomen and pelvis July 2018. TECHNIQUE: MR abdomen was performed without and with use of 8 mL intravenous Gadavist gadolinium contrast. Postcontrast images are performed in multiphase dynamic sequences. Imaging was performed in 3 planes. MRCP images were also performed. FINDINGS: LUNG BASES: The visualized lung bases are unremarkable. LIVER, GALLBLADDER, AND BILIARY TREE: The liver is normal in size, smooth in contour, and normal in signal. No focal hepatic lesion. The gallbladder is normal. There is no intrahepatic biliary duct dilatation. The common bile duct is not dilated measuring up to 1.4 cm. This is slightly increased from 1.1 cm on May 2019 exam. There is beak-like narrowing of the distal common bile duct questionable for a stricture. There is no common bile duct stone seen. PANCREAS: The main pancreatic duct is minimally dilated measuring up to 0.4 cm. The pancreas is otherwise normal. SPLEEN: Normal. ADRENAL GLANDS: Normal. KIDNEYS AND URETERS: The kidneys are normal in size, shape, and enhance symmetrically. No hydronephrosis. No perinephric stranding. GASTROINTESTINAL TRACT: No bowel obstruction. No ascites or fluid collection. ABDOMINAL WALL: No significant hernia is appreciated. LYMPH NODES: No lymphadenopathy. VASCULAR: Unremarkable. OSSEOUS STRUCTURES: Marrow signal normal. MR/MR abdomen wo/w con IMPRESSION: Dilated common bile duct down to the head of the pancreas and question distal common bile duct stricture. Common bile duct is slightly increased from previous exam now measuring up to 1.4 cm compared to 1.1 cm. No common bile duct stone seen. Slightly dilated main pancreatic duct measuring 0.4 cm. No pancreatic mass.
== END 2021-09-13 09:13 | disposition home or self-care (01) ==
LOC: HO.MRI 09:12
PROVIDERS: Visit Provider Dentist Pediatric Dentistry
DX: K83.8 Other specified diseases of biliary tract (principal)
CPT/HCPCS: 74183; A9585

== ENCOUNTER 2022-02-14 15:50 | Emergency (ER) | payer MEDICARE, MEDICAID, SELFPAY ==
--- OUTSIDE RECORDS SUMMARY | 2022-02-14 16:53 | XMS_ITS | Continuity of Care Document ---
:1955 Author Organization [facility] Address [address] [place] [address]- Care Team Providers Name Role Phone Damon Parkinson DO Primary Care Phys[id number] Date(s): 11/16/20 - 12/16/20 [facility] [address] [place] [address]- Allergies, Adverse Reactions, Alerts No Known Medication Allergies Medications Albuterol (Eqv-ProAir HFA) Inhalation, Every 6 hours, 0 Refills, Maintenance, 11/02/20 20:50:00 EDT, Partial fill upon patient request if the prescription is for a schedule II opioid drug. Start Date: 11/02/20 Status: Orderedhydrochlorothiazide 25 mg oral tablet Refills 0, Maintenance, 11/14/20 21:20:00 EDT, Partial fill upon patient request if the prescriptionis for a schedule II opioid drug. Start Date: 11/14/20 Status: OrderedLasix 20 mg oral tablet 1, capsule, By Mouth, Daily, # 7 capsule, Refills 0, Tot. Refills 0, Soft Stop, 12/12/20 19:14:00 EDT, Route to Pharmacy Electronically, [facility]/pharmacy #[id number], Partial fill upon patient request if the prescription is for a schedule II opioid drug., 170,... Start Date: 12/12/20 Stop Date: 12/19/20 Status: OrderedVitamin D3 2000 intl units oral capsule 0 Refills, Maintenance, 11/14/20 21:20:00 EDT, Partial fill upon patient request if the prescriptionis for a schedule II opioid drug. Start Date: 11/14/20 Status: Ordered Problem List Condition Effective Dates Status Health Status Informant Asthma(Confirmed) Active Social History Social History Type Response Smoking Status 10 or more cigarettes (1/2 p ack or more)/day in last 30 days entered on: 11/14/20 Sex
--- OUTSIDE RECORDS SUMMARY | 2022-02-14 16:54 | XMS_ITS | Continuity of Care Document ---
:1955 Author Organization [facility] Address [address] [place] [address]- Care Team Providers Name Role Phone Damon Parkinson DO Primary Care Physician Encounter [facility] Date(s): 01/18/21 - 02/17/21 [facility] [address] [place], [place] [address] Attending Physician: Kacy Sanches Admitting Physician: Kacy Sanches Referring Physician: Kacy Sanches Allergies, Adverse Reactions, Alerts No Known Medication [...] 12/12/20 19:14:00 EDT, Route to Pharmacy Electronically, [facility]/pharmacy #[id number], Partial fill upon patient request if the [...]
--- OUTSIDE RECORDS SUMMARY | 2022-02-14 16:54 | XMS_ITS ---
:1955 Author Care Team Providers Name Role Phone Parkinson, Damon Potter Primary Care Provider Unavailable Allergies Code Code System Name Reaction Severity Status Onset NKDA ? Medications Name Status Start Date Stop Date ? ? albuterol sulfate 2.5 mg/3 mL (0.083 %) solution for nebulizatio n Active ? Not available USE 1 VIAL VIA NEBULIZER YVES VECES AL D A CUANDO SEA NECESARIO albuterol sulfate HFA 90 mcg/actuation aerosol inhaler Active ? Not available amoxicillin 875 mg tablet Completed ? 2020 blood pressure test kit-large cuff Active ? Not available USE DIRECTED cholecalciferol (vitamin D3) 50 mcg (2,000 unit) capsule Active ? Not available clarithromycin 500 mg tablet Completed ? 10/2020 doxycycline hyclate 100 mg capsule Completed ? 11/16/2020 TOME HAROLDO C PSULA CADA 12 HORAS POR 4 D Flovent HFA 110 mcg/actuation aerosol inhaler Active ? Not available TOME HAROLDO INHALACION POR V A ORAL DOS VECES AL MILANA Needs appointment for further refills furosemide 20 mg tablet Active ? Not avai lable hydrochlorothiazide 12.5 mg tablet Unknown ? Not available hydrochlorothiazide 25 mg tablet Active ? Not available TOME HAROLDO TABLETA TODOS LOS D methadone Active ? Not available 70mg day montelukast 10 mg tablet Active ? Not vishnu ilable nicotine 7 mg/24 hr daily transdermal patch Completed ? 11/16/2020 APLIQUE UN PARCHE TODOS LOS CREWS omeprazole 20 mg capsule,delayed release Active ? Not available prednisone 10 mg tablet Completed ? 11/17/19 21 TOME CUATRO TABLETAS POR V A ORAL TODOS LOS D POR 4 D prednisone 20 mg tablet Active ? Not avai lable TAKE 3 TABLETS BY MOUTH DAILY FOR 3 DAY S, 2 TABS FOR 3 DAYS, THEN 1 TAB FOR 3 DAYS prednisone 50 mg tablet Completed ? 06/22/19 21 TOME HAROLDO TABLETA TODOS LOS D POR 5 D Pulmicort Flexhaler 90 mcg/actuation breath activated Completed ? 11/16/2020 TOME DOS INHALACIONES POR V A ORAL DOS VECES AL D A Trelegy Ellipta 100 mcg-62.5 mcg-25 mcg powder for Active ? Not available inhalation Problems Name Status Onset Date Source ? Smoker Active 06/21/2020 ? Asthma Active 06/21/2020 ? Neoplasm of Bladder Active 06/22/2020 ? Glaucoma Active 06/22/2020 ? Bilateral Cataracts Active 06/22/2020 ? Hypertensive Disorder Active 06/22/2020 ? Helicobacter Pylori Gastrointestinal Tract Infection Active 07/29/2020 ? Vitamin D Deficiency Active 07/29/2020 ? Chronic Kidney Disease Stage 2 Active 07/29/2020 ? Impaired Glucose Tolerance Active 07/29/2020 ? Heroin Dependence Active 11/16/2020 ? Edema of Lower Extremity Active 11/16/2020 ? Acute Asthma Active 11/16/2020 ? Procedures Date Name Performed by ? 04/15/2018 Glaucoma Surgery Information not avai lable 04/15/2018 Cataract Surgery Information not avai lable 06/22/2020 US, Abdominal Aorta [facility] (Radi ology) [address], [place] [id number] (Work Place) 11/16/2020 US, Lower Extremity, [facility] (Radiology) [address], [place] [id number] (Work Place) Results Lab Results Date Name Specimen Result Interpretation Description Value Range Status Address ? ? HbA1C (Hemoglobin a1C), Blood ? No observation recorded. ? ? ? Past Encounters 12/02/2020 Edema of Lower Extremity; Acute Asthma; Impaired Glucose Tolerance; Asthma; Hypertensive Disorder; Smoker; Glaucoma; Bilateral Cataracts; Neoplasm of Bladder; Vitamin D Deficiency; Helicobacter Pylori G astrointestinal Tract Infection; Chronic Kidney Disease Stage 2; Heroin Dependence Damon Parkinson, DO: [address] [place] [address], Ph. 11/16/2020 Acute Asthma; Impaired Glucose Tolerance ; Asthma; Hypertensive Disorder; Smoker; Glaucoma; Bilateral Cataracts; Neoplasm of Bladder; Vitamin D Deficiency; Helicobacter Pylori Gastrointestinal Tract Infe ction; Chronic Kidney Disease Stage 2; E tevin of Lower Extremity; Heroin Dependence Damon Parkinson, DO: [address] [place] [address], Ph. 10/19/2020 Impaired Glucose Tolerance; Asthma; Hype rtensive Disorder; Smoker; Glaucoma; Bilateral Cataracts; Neoplasm of Bladder; Vitamin D Deficiency; Helicobacter Pylori Gastrointestinal Tract Infection; Chronic Kidney Disease Stage 2 Damon Parkinson, DO: [address] [place] [address], Ph. 09/19/2020 Asthma; Hypertensive Disorder; Smoker; G laucoma; Bilateral Cataracts; Neoplasm of Bladder; Impaired Glucose Tolerance; Vitamin D Deficiency; Helicobacter Pylori Gastrointestinal Tract Infection; Chronic Kidney Disease Stage 2 Damon Parkinson, DO: [address] [place] [place] [address], Ph. Social History Tobacco Smoking Status Heavy Tobacco Smoker (1 pack per day) Vaccine List Vaccine Type influenza, injectable, quadrivalent 02/06/2018 pneumococcal polysaccharide PPV23 02/06/2018 Tdap 03/06/2016 Plan of Care Reminders Provider Appointments None recorded. ? ? Lab None recorded. ? ? Referral None recorded. ? ? Procedures None recorded. ? ? Surgeries None recorded. ? ? Imaging None recorded. ? ? Vitals Height Weight BMI 5 ft 7 in 160 lbs 25.1 kg/m2
--- OUTSIDE RECORDS SUMMARY | 2022-02-14 16:54 | XMS_ITS | Continuity of Care Document ---
:1955 Author Organization [facility] Address [address] [place] [address]- Care Team Providers Name Role Phone Damon Parkinson DO Primary Care Phys[id number] Date(s): 11/16/20 - 02/17/21 [facility] [address] [place] [address]- Attending Physician: Mone HERNANDEZ, Jamie Goel Admitting Physician: Mone HERNANDEZ, Jamie Goel Referring Physician: Damon Parkinson DO Allergies, Adverse Reactions, Alerts No Known Medication [...] 12/12/20 19:14:00 EDT, Route to Pharmacy Electronically, [facility]/pharmacy #[id number], Partial fill upon patient request if the [...]
== END 2022-02-14 17:00 | disposition left against medical advice (07) ==
PROVIDERS: Emergency Provider Emergency Medicine
DX: M79.603 Pain in arm, unspecified (principal)

== ENCOUNTER → 2022-03-20 07:09 | Outpatient (REF) | payer MEDICARE, MEDICAID, SELFPAY ==
--- NOTE | 2022-03-20 07:13 | CA_ITS ---
Transthoracic Echocardiogram Patient (Last, First, Middle): Keith Oneal A Gender: Male Date of : 1955 Age: 66 Procedure Date: 03/20/2022 Procedure Type: Transthoracic Echocardiogram Location: OP Height: 170.18 cm Weight: 68.95 kg BSA: 1.80 m2 Heart Rate: bpm BP: 110 / 70 mmHg Medical Scheduler: KARO Referring MD: Jason Hill MD Lead Web Developer: Nick Velazquez MD Symptoms: EDEMA R60.0 Study Quality: Good ECG Rhythm: Sinus Conclusions: - 1. Normal systolic function with normal diastolic filling pattern 2. Mildly dilated left atrium 3. Normal cardiac valvular Doppler 4. Normal RV systolic pressure 5. No gross pericardial effusion Findings Left Ventricle Normal left ventricular size, thickness, and systolic function. The visually estimated ejection fraction is between 60-65%. Spectral Doppler is indicative of a normal filling pattern. Peak GLS is -20.3%, within normal limits. Right Ventricle Normal right ventricular cavity size and systolic function. Atria The left atrium is mildly dilated. Interatrial shunt cannot be excluded. The right atrium is normal in size. Aortic Valve Normal aortic valve structure and function. There is no aortic valve stenosis. There is no aortic valve regurgitation. Mitral Valve Normal mitral valve structure and function. There is trace mitral valve regurgitation. There is no mitral valve stenosis. Pulmonic Valve The pulmonic valve is likely normal. Tricuspid Valve Normal tricuspid valve structure. There is trace tricuspid valve regurgitation. The right ventricular systolic pressure is normal. The right ventricular systolic pressure is 25 mmHg. Normal right atrial pressure. There is no evidence of pulmonary hypertension. Great Vessels All visible segments of the aorta are normal in size. The pulmonary artery was not well visualized. Venous The inferior vena cava is mildly dilated and collapses greater than 50% with inspiration. Pericardium/Pleural There is no evidence of pericardial effusion. Prior Study Comparison No prior study available for comparison. Measurements 2D Linear Measurements IVSd: 0.98 0.6-0.9/0.6-1.0 cm LVIDd: 4.58 3.9-5.3/4.2-5.9 cm LVIDd Index: 2.54 2.4-3.2/2.2-3.1 cm/m2 LVIDs: 2.66 2.0-3.6 cm LVPWd: 0.96 0.7-1.1 cm LA Diam: 3.30 2.7-3.8/3.0-4.0 cm LAIDs Index: 1.83 1.5-2.3 cm/m2 LV Mass: 187.94 67-162/88-224 g LV Mass Index: 104.41 43-95/49-115 g/m2 LVOT Diam: 2.10 3.0+(-)1.3 cm 2D Systolic Function EF 4C: 59.90 >55% EF 2C: 65.70 >55% EF BiP: 63.00 >55% Mitral Valve MV Pk E: 0.82 MV PK A: 0.63 MV Decel Time: 243.00 E/A: 1.30 E'Lateral: 10.40 E'Medial: 8.05 E/E' Med: 10.20 E/E' Lat: 7.90 PHT: 71.00 MVA PHT: 3.10 Decel Waller: 3.37 Aortic Valve AoV Pk Negro: 1.33 AoV Mn Negro: 0.84 AoV VTI: 0.32 AoV Pk Grad: 7.00 Aov Mn Grad: 3.00 ELEANOR Cont.VTI: 2.59 LVOT LVOT Pk Negro: 1.04 LVOT Mn Negro: 0.64 LVOT VTI: 0.24 LVOT Pk Grad: 4.00 LVOT Mn Grad: 2.00 LVOT Diam: 2.10 LVOT Area: 3.46 Diastolic Function MV Pk E: 0.82 MV Pk A: 0.63 E/A: 1.30 E'Medial: 8.05 E/E' Med: 10.20 E' Laterial: 10.40 E/E' Lat: 7.90 Right Ventricle TAPSE (mm): 27.70 TVS' Negro: 13.30 Tricuspid Valve TR Pk Negro: 2.06 TR Pk Grad: 17.00 RA Press: 8.00 RVSP: 25.00 Great Vessels Aorta Sinus of Valsalva: 3.56 2.0-3.[address] Ridge: 2.41 1.7-3.4 cm Ao Asc: 3.00 2.1-3.4 cm Updated in Other Vendor System with Status of Final Nick Velazquez MD electronically signed on 03/23/2022 4:16:08 PM with status of Final
== END ==
LOC: HO.CARD 07:09
PROVIDERS: Visit Provider Internal Medicine
DX: I80.8 Phlebitis and thrombophlebitis of other sites (principal); R60.0 Localized edema
CPT/HCPCS: 93306; 93356; 99212

== ENCOUNTER → 2022-04-26 10:51 | Day surgery (SDC) | payer MEDICARE, MEDICAID, SELFPAY ==
--- NOTE | 2022-04-25 13:43 | HO.ANESPROP2 ---
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 Primary osteoarthritis of right knee Family History Family History Sister Diabetes Sister Diabetes Mother Diabetes Father Diabetes Surgical History Surgical History (Updated 05/07/22 @ 11:16 by PREET Beckman) History of bladder surgery Hx of bilateral cataract extraction Social History Social History Alcohol intake: current Alcohol intake frequency: holidays/special occasions only Alcohol type: beer Patient Tobacco Use Status: Current everyday Tobacco user Tobacco use type: Cigarette Substance Use Type: Heroin Substance Use Type Other:: one year sober per patient Are you DNR?: No Advance Directives: No Advance Directives Information Provided: Yes Meds Allergies Allergy/AdvReac Type Severity Reaction Status Date / Time No Known Allergies Allergy Verified 04/23/22 15:20 [No Known Allergies*] Home Medications Medication Instructions Recorded Confirmed Last Taken Type fluticasone propionate 220 inh PO BID 11/27/21 Unknown History mcg/actuation HFA aerosol inhaler (Flovent HFA) hydrochlorothiazide 25 mg tablet 1 tab DAILY 11/27/21 11/27/21 Unknown History naloxone 4 mg/actuation nasal spray spray intranasal 11/27/21 Unknown History omeprazole 20 mg capsule,delayed 1 cap PO 11/27/21 Unknown History release Exam Exam Date and Time: April 25, 2022 1343 Pertinent Lab Results Pertinent Lab Results: Laboratory Tests 08/18/21 08/18/21 10:50 10:50 WBC 4.0 L Hgb 13.1 L Hct 38.7 L Plt Count 250 Sodium 137 Potassium 4.0 Chloride 98 Carbon Dioxide 33 H BUN 18 H Creatinine 0.93 Narrative Narrative: ECHO 2021 Conclusions: - 1. Normal systolic function with normal diastolic filling? ? ? pattern? 2. Mildly dilated left atrium? 3. Normal cardiac valvular Doppler ? 4. Normal RV systolic pressure ? 5. No gross pericardial effusion ?? Assessment and Plan Assessment Anesthesia Assessment: Chart Reviewed
[2022-04-26 09:45] VITALS: BMI 27.2
[2022-04-26 10:53] VITALS: RESP 18; TEMP 36.1
--- NOTE | 2022-04-26 11:04 | MHC.SHP ---
Pre-Procedural Eval Section A Date of Service: 04/26/22 Section B Chief Complaint: specified diseases of biliary tract,fecal abnormal Present Medications: see Short Stay Collaborative assessment Medical History: Significant History (Asthma Glaucoma HTN (hypertension) bladder cancer) History of Previous Operations: Relevant previous surgery/procedure and date(s) (Hx of bilateral cataract extraction resection of bladder tumour) Allergies: Allergies Allergy/AdvReac Type Severity Reaction Status Date / Time No Known Allergies Allergy Verified 04/23/22 15:20 [No Known Allergies*] Review of Systems Sugical H&P ROS: Negative: Constitution, Cardiovascular, Respiratory, Neurological, Psychiatric, Hem-Onc, Allergic/Immunologic, Gastrointestinal, Genitourinary, Musculoskeletal, Integumentary, Endocrine and Eyes/Ears/Nose/Throat Exam Surgical H&P Exam: Normal: HEENT, Normal: Heart, Normal: Lungs, Normal: Extremities, Normal: Abdomen, Normal: Skin and Normal: Neurological Plan Diagnosis/Plan: Unchanged I have reviewed the history and physical and performed a pertinent physical examination on my patient. No changes have occurred unless specified. Time Spent With Patient Time: Total time managing care of this patient today ____ minutes.
--- NOTE | 2022-04-26 11:10 | PC.NURSE ---
pt sts did ofelia today 2bag dr black and anesthesia aware
--- NOTE | 2022-04-26 11:15 | PC.NURSE ---
pt cancelled by anesthesia ans aware careplan pt sts ate all day after being cancelled
== END ==
PROVIDERS: Visit Provider Internal Medicine Gastroenterology
DX: R19.5 Other fecal abnormalities (principal); Z53.8 Procedure and treatment not carried out for other reasons; K83.8 Other specified diseases of biliary tract

== ENCOUNTER → 2022-05-09 13:53 | Outpatient (BNVA) | payer MEDICARE, MEDICAID, SELFPAY | PROVIDERS: PCP Internal Medicine; Visit Provider Urology | DX: C67.9 Malignant neoplasm of bladder, unspecified (principal) | CPT/HCPCS: 99202 ==

== ENCOUNTER 2022-05-28 09:42 | Emergency (ER) | payer MEDICARE, MEDICAID, SELFPAY ==
--- NOTE | ~2022-05-28 | XR_ITS ---
EXAMINATION: XR CHEST CLINICAL INFORMATION: Shortness of breath. Cough. COMPARISON: Previous chest x-ray October 2020 TECHNIQUE: 2 views of the chest were obtained. FINDINGS: No significant abnormality is noted involving the heart, lungs, mediastinum, bony thorax or soft tissues. Mild scoliosis and degenerative changes of the spine. XR/XR chest 2V IMPRESSION: No evidence for acute disease in the chest.
[2022-05-28 09:55] VITALS: BP 143/76; PULSE 77; RESP 20; TEMP 36.6; O2SAT 94; BMI 24.3
--- NOTE | 2022-05-28 10:21 | ED.ASTHMA ---
HPI - Asthma General Chief Complaint: Asthma Stated Complaint: asthma diff breathing Time Seen by Provider: 05/28/22 10:18 Source: patient Mode of arrival: ambulatory Limitations: no limitations History of Present Illness HPI Narrative: Patient is a 66-year-old male presents emergency department for evaluation of ?asthma exacerbation . He states for the past week he has been having increasing shortness of breath that is worse with exertion, wheezing, that is unrelieved with his home nebulizer/inhaler, cough with clear phlegm, nasal congestion. Reports that this feels typical of his prior asthma exacerbations. Denies associated fevers, chills sore throat, chest pain, nausea, vomiting, abdominal pain. Denies any known sick contacts. Related Data Home Medications Medication Instructions Recorded Confirmed fluticasone propionate 220 inh PO BID 11/27/21 mcg/actuation HFA aerosol inhaler (Flovent HFA) hydrochlorothiazide 25 mg tablet 1 tab DAILY 11/27/21 11/27/21 naloxone 4 mg/actuation nasal spray spray intranasal 11/27/21 omeprazole 20 mg capsule,delayed 1 cap PO 11/27/21 release Previous Rx's Medication Instructions Recorded albuterol sulfate 2.5 mg/0.5 mL 2.5 mg (0.5 mL) inhalation Q6H PRN 02/10/20 solution for nebulization bronchospasm #30 ea albuterol sulfate 90 mcg/actuation 1 inh inhalation QID PRN shortness 08/13/20 aerosol inhaler (ProAir HFA) of breath or wheezing #8.5 grams ondansetron 4 mg disintegrating 4 mg PO Q8H PRN nausea and 08/18/21 tablet vomiting #7 tabs sodium,potassium,mag sulfates 17.5 See Rx Instructions PO .COMPLEX 08/18/21 gram-3.13 gram-1.6 gram oral soln #354 mL (Suprep Bowel Prep Kit) albuterol sulfate 90 mcg/actuation 2 puff inhalation Q4-6H PRN 05/28/22 aerosol inhaler (Ventolin HFA) shortness of breath or wheezing #6.7 grams prednisone 20 mg tablet 40 mg PO DAILY 4 days #8 tabs 05/28/22 Allergies Allergy/AdvReac Type Severity Reaction Status Date / Time No Known Allergies Allergy Verified 05/09/22 14:29 [No Known Allergies*] Review of Systems Review of Systems: Constitutional : No Fever, No Chills ENT/Mouth : No Hoarseness, No sore throat, No Rhinorrhea Eyes: No Redness, No Discharge, No Vision Changes Cardiovascular : No Chest Pain, positive SOB, positive Dyspnea on Exertion, No Edema Respiratory : positive Cough, No Sputum, positive Wheezing, Gastrointestinal : No Nausea, No Vomiting, No Diarrhea, No abdominal Pain Genitourinary : No Dysuria, No Hematuria Musculoskeletal : No joint pain, No Myalgias Skin : No rash Neuro : No Weakness, No Numbness, No Headache Psych : No anxiety, depression Heme/Lymph: No Bruising, No Bleeding Endocrine : No Polyuria, No Polydipsia Yes all other systems are reviewed and are negative [facility] Past Medical History Attestation statement: The following information was validated with the patient. Source: old records reviewed Medical History Acute medial meniscus tear of left knee Asthma COPD (chronic obstructive pulmonary disease) Glaucoma Gout Gross hematuria History of heroin abuse HTN (hypertension) Malignant neoplasm of anterior wall of bladder Primary osteoarthritis of right knee Surgical History History of bladder surgery Hx of bilateral cataract extraction Family History Family History Sister Diabetes Sister Diabetes Mother Diabetes Father Diabetes Social History Social History Alcohol intake: never Patient Tobacco Use Status: Current everyday Tobacco user Tobacco use type: Cigarette Smoked in Last 30 Days: Yes Use of substances other than those prescribed or required for medical reasons: No Substance Use Type: Heroin Advance Directives: No Advance Directives Information Provided: Yes Physical Exam Vital Signs: Vital Signs: Last Vital Signs Temp 97.9 F 05/28/22 09:55 Pulse 67 05/28/22 10:44 Resp 20 05/28/22 10:44 BP 143/76 H 05/28/22 09:55 Pulse Ox 94 05/28/22 09:55 O2 Del Method 05/28/22 09:55 BMI result Body Mass Index 24.3 Appearance: Alert.?Oriented to person, place and time. No acute distress.?Normal affect. Eyes: Pupils equal, round and reactive to light.? ENT: Pharynx normal.?? Neck: Normal inspection.? Neck supple.?? CVS: Heart sounds normal. Normal heart rate and rhythm.? Pulses normal.?? Respiratory: No respiratory distress.? Lung sounds expiratory wheezing bilaterally, right lower lobe is diminished? Abdomen: Soft and non-tender. Normoactive bowel sounds.? Skin: Skin warm and dry.? Normal skin color.? ? Extremities: No lower extremity edema.? No calf ttp? Neuro: Moves all extremities spontaneously. Sensation intact bilaterally. . No focal neuro deficits. Ambulates with normal steady gait. Course Reevaluation(s) Reevaluation #1: Chest x-ray without evidence of acute cardiopulmonary process, not consistent with pneumonia at this time. Viral testing is negative. Lung sounds after updraft with improvement remains with mild expiratory wheezing. Ambulatory O2 saturation remains 96%. Discussed with patient plan of care for discharge home. Prescription for prednisone, albuterol inhaler sent to patient's pharmacy for management of asthma exacerbation. Reviewed worrisome signs symptoms of warrant re-evaluation in the emergency department. Advised outpatient follow-up with primary care provider as needed for persistent symptoms. All questions answered. Stable for discharge. Time: 11:55 Medications Administered Discontinued Medications Generic Name Dose Route Start Last Admin Trade Name Griffinq PRN Reason Stop Dose Admin Albuterol Sulfate 7.5 mg 05/28/22 10:05/28/22 10:43 Albuterol Sulfate (0.083%) 2.5 Mg/3 Ml Vial.Neb INHALE 05/28/22 10:27 7.5 mg ONCE ONE Administration Albuterol/Ipratropium 3 ml 05/28/22 10:26 05/28/22 10:43 Albuterol/Iprat 2.5/0.5mg 3 Ml Ampul.Neb INHALE 05/28/22 10:27 3 ml ONCE ONE Administration Prednisone 60 mg 05/28/22 10:05/28/22 11:13 Prednisone 20 Mg Tablet PO 05/28/22 10:27 60 mg ONCE ONE Administration Medical Decision Making Medical Decision Making MDM Narrative: Patient is a 66-year-old male with past medical history of asthma, COPD, glaucoma, gout, hypertension, bladder cancer who presents emergency department for evaluation of shortness of breath/asthma exacerbation. At time of my examination he is overall well-appearing. No respiratory distress. No tachypnea, hypoxia, fever, tachycardia. He is able to speak clear brief sentences. Patient without chest pain, ACS less likely, no history of CHF, no rales, hypoxia, low suspicion at this time. Will obtain chest x-ray to consolidation/infiltrate/pneumonia. COVID-19/influenza testing to be obtained. Patient received DuoNeb updraft, total of 10 mg albuterol, and prednisone orally. Disposition pending results. Differential Diagnosis Differential Diagnoses: The differential diagnosis associated with the presentation includes (Viral upper respiratory infection, pneumonia, COPD exacerbation, CHF, ACS, pulmonary embolism are) Lab Data MDM Lab Attestation statement: I reviewed the patient's lab results. Labs: Lab Results 05/28/22 05/28/22 Range/Units 11:38 11:38 COVID-19 ([facility]) Negative (Negative) COVID-19 Clin Com See Note Influenza Type A ([facility]) Negative (Negative) Influenza Type B (TER[facility]A) Negative (Negative) Influenza A & B Note See Note Independent Interpretation I performed an independent interpretation of an: Plain X-Ray (I have personally interpreted chest x-ray and radiologist impression) Radiology Impression Discussion of test interpretation with radiology: I have reviewed the radiologist's reading. Radiologist Impression: XR/XR chest 2V IMPRESSION: No evidence for acute disease in the chest. Prescription Management I considered prescription management with: Antibiotic (Antibiotic was consider, at this time bacterial infection not suspected) and Other (Prednisone, albuterol) Discharge Plan Discharge Clinical Impression: Asthma exacerbation Patient Disposition: Home, Self-Care Instructions: Asthma (ED) Additional Instructions: Use albuterol inhaler as needed for shortness of breath/wheezing. Prescription for prednisone was sent to your pharmacy please begin this tomorrow. He may return back to emergency department any new or worsening symptoms or concerns. Follow-up with your primary care provider as needed. Prescriptions: New albuterol sulfate [Ventolin HFA] 90 mcg/actuation HFA aerosol inhaler 2 puff inhalation Q4-6H PRN (Reason: shortness of breath or wheezing) Qty: 6.7 0RF prednisone 20 mg tablet 40 mg PO DAILY 4 Days Qty: 8 0RF No Action albuterol sulfate 2.5 mg/0.5 mL solution for nebulization 2.5 mg inhalation Q6H PRN (Reason: bronchospasm) Qty: 30 0RF Rx Instructions: for up to 3 doses albuterol sulfate [ProAir HFA] 90 mcg/actuation HFA aerosol inhaler 1 inh inhalation QID PRN (Reason: shortness of breath or wheezing) Qty: 8.5 0RF omeprazole 20 mg capsule,delayed release(DR/EC) 1 cap PO fluticasone propionate [Flovent HFA] 220 mcg/actuation HFA aerosol inhaler PO BID hydrochlorothiazide 25 mg tablet 1 tab DAILY naloxone 4 mg/actuation spray,non-aerosol intranasal Suprep Bowel Prep Kit 17.5-3.13-1.6 gram recon soln See Rx Instructions PO .COMPLEX Qty: 354 0RF Rx Instructions: DILUTE; drink 1/2 at 6-8 pm and half at 11 PM- 1AM ondansetron 4 mg tablet,disintegrating 4 mg PO Q8H PRN (Reason: nausea and vomiting) Qty: 7 0RF Interventions: ED Discharge Assessment Last Done: 05/28/22 12:34 Discharge Date/Time: 05/28/22 12:34
[2022-05-28] MEDS: Albuterol/Iprat 2.5/0.5MG 3 ML AMPUL.NEB INHALE (10:43)
[2022-05-28] MEDS: Albuterol Sulfate (0.083%) 2.5 MG/3 ML VIAL.NEB 7.5 MG INHALE (10:43)
[2022-05-28 10:44] VITALS: PULSE 67; RESP 20; O2SAT 96
[2022-05-28] MEDS: predniSONE 20 MG TABLET 60 MG PO (11:13)
[2022-05-28 12:09] LABS: COVID-19 Test Negative (Negative); IDNOW Serial# 55D5AD1C; IDNOW Serial# BCCEAD1C; Influenza A Negative (Negative); Influenza B2 Negative (Negative)
== END 2022-05-28 12:34 | disposition home or self-care (01) ==
PROVIDERS: Nurse Practitioner Family; Emergency Provider Emergency Medicine; PCP Internal Medicine
DX: J45.901 Unspecified asthma with (acute) exacerbation (principal); Z20.822 Contact with and (suspected) exposure to COVID-19; F17.210 Nicotine dependence, cigarettes, uncomplicated
CPT/HCPCS: 71046; 87502; 87635; 94640; 99284